=== PATIENT | female | born 1995 | race Caucasian/White ===

== ENCOUNTER → 2021-05-20 14:36 | Outpatient (BNVA) | payer BC, SELFPAY | PROVIDERS: Visit Provider Nurse Practitioner Women's Health | DX: N92.6 Irregular menstruation, unspecified (principal) | CPT/HCPCS: 81025 ==

== ENCOUNTER → 2021-06-04 11:00 | Outpatient (BNVA) | payer BC, SELFPAY | PROVIDERS: Visit Provider Obstetrics & Gynecology | DX: O36.80X0 Pregnancy with inconclusive fetal viability, not applicable or unspecified (principal) | CPT/HCPCS: 80053; 84702; 85025; 86850; 86900 ==

== ENCOUNTER 2021-06-06 14:42 | Outpatient (CLI) | payer BC, SELFPAY | END 2021-06-06 14:43 | disposition home or self-care (01) | LOC: LAB 14:49 | PROVIDERS: Visit Provider Nurse Practitioner Women's Health | DX: Z34.90 Encounter for supervision of normal pregnancy, unspecified, unspecified trimester (principal) | CPT/HCPCS: 36415; 84702 ==

== ENCOUNTER → 2022-02-19 13:39 | Outpatient (BNVA) | payer SELFPAY | PROVIDERS: Visit Provider Nurse Practitioner Women's Health | DX: N92.6 Irregular menstruation, unspecified (principal) | CPT/HCPCS: 81025 ==

== ENCOUNTER 2022-02-23 07:27 | Outpatient (CLI) | payer SELFPAY ==
--- NOTE | 2022-02-23 08:00 | US_ITS ---
WS: [id number] EARLY OBSTETRICAL ULTRASOUND (<14 WEEKS). HISTORY: Z34.90 - Encounter for supervision of normal COMPARISON: None available. Single intrauterine gestational sac is identified. Cardiac activity at 167 BPM. [place]-rump length brie sures 1.7 cm which corresponds to a gestation of 8w1d. Normal-appearing yolk sac and amnion demonstra madhu. No subchorionic hemorrhage. No free fluid. RIGHT ovary measures 2.7 x 2.3 x 5.1 cm. The RIGHT ovary contains a thick wall corpus luteum cyst brie suring 2.5 x 2.1 x 2.6 cm with a small amount of adjacent free fluid. Normal vascularity. LEFT ovary measures 2.5 x 1.7 x 3.1 cm. Cervix is closed and normal length measuring 4.0 cm. There is a very tiny amount of free fluid along the cervical canal which is probably of no significance. US/US OB transvaginal [id number] IMPRESSION: 1. Single intrauterine gestation of 8 weeks 1 day with an EDC of 10/04/2022. 2. Normal cardiac activity. 3. RIGHT ovarian corpus luteum of with a small amount of adjacent fl uid.
== END 2022-02-23 07:28 | disposition home or self-care (01) ==
PROVIDERS: Visit Provider Obstetrics & Gynecology
DX: Z34.91 Encounter for supervision of normal pregnancy, unspecified, first trimester (principal); Z3A.08 8 weeks gestation of pregnancy
CPT/HCPCS: 76817

== ENCOUNTER → 2022-03-12 09:20 | Outpatient (BNVA) | payer BC, SELFPAY | PROVIDERS: Visit Provider Obstetrics & Gynecology | DX: Z34.90 Encounter for supervision of normal pregnancy, unspecified, unspecified trimester (principal) | CPT/HCPCS: 80307; 84315; 87086 ==

== ENCOUNTER → 2022-03-27 11:06 | Outpatient (BNVA) | payer BC, MEDICAID, SELFPAY | PROVIDERS: Visit Provider Obstetrics & Gynecology | DX: Z34.90 Encounter for supervision of normal pregnancy, unspecified, unspecified trimester (principal) | CPT/HCPCS: 81000; 84443; 85025; 86592; 86762; 86803; 86850; 86900; 87340; 87491; 87591; 87661; 87806; 88175 ==

== ENCOUNTER → 2022-07-10 12:53 | Outpatient (BNVA) | payer BC, MEDICAID, SELFPAY | PROVIDERS: Visit Provider Obstetrics & Gynecology | DX: Z34.90 Encounter for supervision of normal pregnancy, unspecified, unspecified trimester (principal) | CPT/HCPCS: 81000; 82950; 85025 ==

== ENCOUNTER → 2022-08-06 10:20 | Outpatient (BNVA) | payer BC, MEDICAID, SELFPAY | PROVIDERS: Visit Provider Obstetrics & Gynecology | DX: Z34.90 Encounter for supervision of normal pregnancy, unspecified, unspecified trimester (principal) | CPT/HCPCS: 81000 ==

== ENCOUNTER → 2022-08-19 10:00 | Outpatient (BNVA) | payer BC, MEDICAID, SELFPAY | PROVIDERS: Visit Provider Obstetrics & Gynecology | DX: Z34.90 Encounter for supervision of normal pregnancy, unspecified, unspecified trimester (principal) | CPT/HCPCS: 81000 ==

== ENCOUNTER → 2022-09-03 12:50 | Outpatient (BNVA) | payer BC, MEDICAID, SELFPAY | PROVIDERS: Visit Provider Obstetrics & Gynecology | DX: Z34.90 Encounter for supervision of normal pregnancy, unspecified, unspecified trimester (principal) | CPT/HCPCS: 81000; 85025 ==

== ENCOUNTER → 2022-09-14 15:00 | Outpatient (BNVA) | payer BC, MEDICAID, SELFPAY | PROVIDERS: Visit Provider Obstetrics & Gynecology | DX: Z34.90 Encounter for supervision of normal pregnancy, unspecified, unspecified trimester (principal); Z67.91 Unspecified blood type, Rh negative | CPT/HCPCS: 81000; 86850; 87081; 87086 ==

== ENCOUNTER → 2022-09-21 13:30 | Outpatient (BNVA) | payer BC, MEDICAID, SELFPAY | PROVIDERS: Visit Provider Obstetrics & Gynecology | DX: Z34.90 Encounter for supervision of normal pregnancy, unspecified, unspecified trimester (principal) | CPT/HCPCS: 81000 ==

== ENCOUNTER → 2022-09-28 08:21 | Outpatient (BNVA) | payer BC, MEDICAID, SELFPAY | PROVIDERS: Visit Provider Obstetrics & Gynecology | DX: Z34.90 Encounter for supervision of normal pregnancy, unspecified, unspecified trimester (principal) | CPT/HCPCS: 81000 ==

== ENCOUNTER → 2022-10-05 08:43 | Outpatient (BNVA) | payer BC, MEDICAID, SELFPAY | PROVIDERS: Visit Provider Obstetrics & Gynecology | DX: Z34.90 Encounter for supervision of normal pregnancy, unspecified, unspecified trimester (principal) | CPT/HCPCS: 81000 ==

== ENCOUNTER 2022-10-10 03:59 | Inpatient (IN) | payer BC, MEDICAID, SELFPAY ==
[2022-10-09] VITALS (28 sets, daily range): BP systolic 116–143; BP diastolic 72–97; PULSE 70–115; RESP 15–18; TEMP 36.3–36.8; BMI 36.6
[2022-10-09 10:40] LABS: Actim Prom Positive
[2022-10-09 11:29] LABS: Basophils % 0.4 %; Eosinophils % 0.4 %; Hematocrit 38.4 % (37.0-47.0); Hemoglobin 12.7 g/dL (11.5-15.3); Lymphocytes # 2.2 10^3/uL (0.8-4.8); Mean Corpuscular HGB Conc 33.1 g/dL (30.0-36.0); Mean Corpuscular Hemoglobin 26.8 pg (28.0-34.0); Mean Platelet Volume 9.5 fL (7.4-10.4); Monocytes # 0.5 10^3/uL (0.2-0.9); Neutrophils # 7.66 10^3/uL (1.8-7.7); Neutrophils % 72.6 %; Nucleated Red Blood Cells % 0 %; Platelet Count 274 10^3/cmm (130-400); Red Blood Count 4.74 10^6/uL (4.1-5.3); Red Cell Distribution Width 13.8 % (12.1-15.1); White Blood Count 10.6 10^3/uL (4.0-10.0)
[2022-10-09] MEDS: miSOPROStol 100 mcg tablet 25 MCG VAGINAL ×3 (11:47→19:52)
[2022-10-09] MEDS: dextrose 5%-lactated ringers 1,000 ML 125 ML IV (11:48)
[2022-10-09] MEDS: ampicillin 2,000 MG in sodium chloride 0.9% (plus) 50 ML 100 MG IV (11:48)
[2022-10-09] MEDS: ampicillin 1,000 MG in sodium chloride 0.9% (plus) 50 ML 100 MG IV ×3 (15:47→23:48)
[2022-10-09] MEDS: fentaNYL 50 mcg/mL INJ 2mL IVP ×2 (22:04→23:21)
[2022-10-10] VITALS (89 sets, daily range): BP systolic 91–162; BP diastolic 53–97; PULSE 60–116; RESP 16–20; TEMP 35.8–37.4; O2SAT 97–98
[2022-10-10] MEDS: oxytocin 30 UNIT/500 ML BAG IV (00:27)
[2022-10-10] MEDS: fentaNYL 50 mcg/mL INJ 2mL IVP ×5 (00:35→04:59)
[2022-10-10] MEDS: ampicillin 1,000 MG in sodium chloride 0.9% (plus) 50 ML 100 MG IV ×4 (03:48→16:00)
[2022-10-10] MEDS: lactated ringers 1,000 ML 999 ML IV ×4 (03:55→20:50)
--- NOTE | 2022-10-10 06:19 | ANES.PREANE2 ---
Pre-Anesthetic Assessment Height/Weight: Height 1.6 m Weight 93.894 kg Temp Pulse Resp BP Pulse Ox O2 Del Method 96.4 F L 61 16 116/74 97 10/10/22 06:01 10/10/22 06:14 10/10/22 04:59 10/10/22 06:14 10/10/22 05:13 10/09/22 11:28 Epidural Familial anesthetic complications: None Was Beta Bereket taken within 24 hours: N/A Was Clonidine taken within 24 hours: N/A Social No alcohol and No tobacco Exam alert, oriented x 3, clear to auscultation bilaterally and regular rate & rhythm Airway Mallampati: Class III Dentition: full Anesthetic Plan ASA status: 2 Anesthesia: Regional (specify below) Risk of > 500 ml blood loss (7ml/kg in children): Yes, adequate IV access and fluids planned Medications/Allergies Home Medications Medication Instructions Recorded Confirmed Last Taken Type prenat.vits,adarsh,lte-pzum-gzcmu 1 tab PO DAILY 02/19/22 10/05/22 10/09/22 08:00 History calcium carbonate 200 mg calcium 200 mg PO BID 07/10/22 10/05/22 10/08/22 20:00 History (500 mg) chewable tablet (Tums) Allergies Allergy/AdvReac Type Severity Reaction Status Date / Time No Known Allergies Allergy Verified 10/05/22 08:48 Current Medications Generic Name Dose Route Start Last Admin Trade Name Freq PRN Reason Stop Dose Admin Fentanyl 25 - 100 mcg 10/09/22 21:38 10/10/22 04:59 Fentanyl 50 Mcg/Ml Inj 2ml IVP 75 mcg Q1H PRN Administration SEVERE PAIN Dextrose/Lactated Ringer's 1,000 mls @ 125 mls/hr 10/09/22 11:15 10/09/22 11:48 Dextrose 5%-Lactated Ringers IV 125 mls/hr .Q8H PARISA Administration Ampicillin Sodium 1,000 mg/ 50 mls @ 100 mls/hr 10/09/22 15:45 10/10/22 03:48 Sodium Chloride IV 100 mls/hr Q4H PARISA Administration Protocol Oxytocin 30 unit in 500 mls @ 1 mls/hr 10/09/22 23:45 10/10/22 01:01 Pitocin IV 2 milliunit/min .Q24H PARISA 2 mls/hr Titration Protocol 1 MILLIUNIT/MIN Lactated Ringer's 1,000 mls @ 999 mls/hr 10/10/22 03:53 10/10/22 03:55 Lactated Ringers IV 999 mls/hr .Q1H1M PRN Administration See label comments PFSH Anesthesia Medical History No pertinent past medical history neghx: htn,dm,thyroid,dvt/pe PCP: None Surgical History H/O oral surgery (~2019) removal of abscess Family History Grandfather Diabetes Paternal Denies family history of Colon cancer Ovarian cancer Heart disease Hypercholesteremia Breast cancer Hypertension Uterine cancer Thyroid disease Stroke Social History Smoking and tobacco status: never smoked Female Reproductive History : 2 Data Anesthesia 10/09/22 11:00 Short CBC 10/09/22 Range/Units 11:00 WBC 10.6 H (4.0-10.0) 10^3/uL Hgb 12.7 (11.5-15.3) g/dL Hct 38.4 (37.0-47.0) % MCV 81.0 (81-99) fl Plt Count 274 (130-400) 10^3/cmm Neut % (Auto) 72.6 % Neut # (Auto) 7.66 (1.8-7.7) 10^3/uL Cardiac Studies: No Data to Display
--- NOTE | 2022-10-10 06:20 | ANES.PROC ---
Anesthesia Procedures Procedure/Date: 10/10/22 Epidural: Time Out Performed: Yes Consents Signed: Procedure Consent Consent: requested by attending/covering physician, from patient, from other, risks and benefits reviewed and patient agrees to proceed Lumbar Level: L3-L4 Epidural position: sitting Epidural procedure: sterile prep of area, 1% lidocaine to numb the area, 18 g needle, negative for paresthesia passed, neg for paresthesia, test dose given, 1.5% xylocaine 1:200k epi (5 cc), 0.2% Ropivacaine bolus ml (5), placed PCEA, no systemic response, sterile dressing applied, L.U.D. no apparent complications and 0.2% Ropiavacaine @ mls/hr (13) Additional Comments: BHAVIN at 4.5 cm, threaded to 10.5 cm
[2022-10-10] MEDS: dextrose 5%-lactated ringers 1,000 ML 125 ML IV (13:57)
--- NOTE | 2022-10-10 20:39 | PM.PN ---
Subjective Subjective: Ms. Ford is a 26 year old established patient with LMP of 12/12/21, and an RO of 10/12/21 based on 8 week sonogram placing her at 39+5 admitted to labor and delivery with premature rupture membranes. Vitals/I&O/Wt Last Vital Signs Temp 98.8 F 10/10/22 17:57 Pulse 93 10/10/22 20:33 Resp 20 H 10/10/22 16:55 BP 130/60 10/10/22 20:33 Pulse Ox 97 10/10/22 05:13 O2 Del Method 10/09/22 11:28 10/10/22 10/10/22 10/10/22 06:59 14:59 22:59 Intake Total 100.567 / 0421.017 5745.717 / 2219.717 151.00 / 2370.717 Balance 100.567 / 1219.531 1790.717 / 2219.717 151.00 / 2370.717 Weight last 48 hrs Weight 93.894 kg Weight 93.894 kg Physical Exam Narrative: GA: Alert and oriented ?3. Lungs: Clear to auscultation bilaterally. Heart: Regular rhythm and rate. Abdomen: Gravid, full the height equals dates, nontender. 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 Extremities: no edema, no cyanosis, no calves pain. heart tracing: Basal rate: 130's bpm, Variability: moderate, Accelerations: present, Decelerations: Occasional variable early, Contraction: q3-5m. Urinary Catheter Management: Daniel: Cath Placed During This Visit: yes, but has since been removed by the nurse Reason for Continuing Indwelling Catheter: Decision to DC Catheter Urinary Catheter Date of Insertion: 10/10/22 Urinary Catheter Time of Insertion: 05:45 Date Urinary Catheter Removed: 10/10/22 Time Urinary Catheter Discontinued: 16:53 Data 10/09/22 11:00 A&P Assessment and plan (1) Term : Ms. Ford is a 26 year old established patient with LMP of 12/12/21, and an RO of 10/12/21 based on 8 week sonogram placing her at 39+5 admitted to labor and delivery with premature rupture membranes. Misoprostol was given for cervical ripening. Then she was started on oxytocin for augmentation. She had a slow progression of labor had been fully dilated for 3-1/2 hours without significant descent. heart tracing category 2. scalp stimulation good. Patient was counseled regarding failure to descend and recommendation for primary low transverse delivery. Her and her agreed. (2) Rh negative state in antepartum period: (3) Premature rupture of membranes: Attestations Medical Necessity Statement*: In my professional opinion per admitting diagnosis Coding Level of Care Code Acute Code for Chg Fwd Diagnoses Term Z34.90 Rh negative state in antepartum period O26.899; Z67.91 Premature rupture of membranes O42.90
[2022-10-10] MEDS: famotidine 20 mg/2 mL INJ IVP (21:02)
[2022-10-10] MEDS: citric acid-sodium citrate 30 mL UDC PO (21:02)
[2022-10-10] MEDS: metoclopramide 5 mg/mL SDV 2 mL 10 MG IVP (21:02)
[2022-10-10] MEDS: ceFAZolin 2,000 MG in sodium chloride 0.9% (plus) 50 ML 100 MG IV (21:03)
--- NOTE | 2022-10-10 22:50 | PM.OP ---
Operative Report Date of procedure: October 10, 2022 Pre-op diagnosis: Term Premature rupture of membrane Failure to descend. Post-op diagnosis: Same as above Procedure done: Primary low transverse delivery Surgeon: Nic Puentes MD Estimated blood loss (mL): 1,000 IV fluids (mL): 1,100 Urine output (mL): 300 Complications: None Brief History: Mrs. Blevins 26-year-old female G1, P0 with an estimated gestational age at 39 weeks, in active labor with arrest of descent. heart tracing category 2. Procedure: After assuring informed consent, the patient was taken to the operating room and anesthesia was initiated. She was placed in the dorsal supine position with a left lateral tilt. The abdomen was prepped and draped in the usual sterile manner. A time-out procedure was performed. A Pfannenstiel skin incision was made with the scalpel and carried through to the underlying layer of fascia with the Bovie. The fascia was nicked in the midline and the incision extended laterally with the Smith scissors. The superior aspect of the fascial incision was then grasped with Petra clamps and elevated and the underlying rectus muscle dissected off bluntly and sharp with smith scissors. Attention was then turned to the inferior aspect of the incision which, in similar fashion, was grasped and tented up with Petra clamps and the rectus muscle dissected bluntly. The rectus muscles were then in the midline and the peritoneum identified, tented up and entered sharply with Metzenbaum scissors. The peritoneal incision was then extended superiorly and inferiorly with good visualization of the bladder. The Mert O retractor was then inserted and the vesicouterine peritoneum identified, grasped with pickups and entered sharply with Metzenbaum scissors. This incision was then extended laterally and the bladder flap created digitally. The uterus incised in a low transverse fashion with the scalpel. The uterine incision was then extended with the bandage scissors. The was then delivered in the cephalic presentation atraumatically. The nose and the mouth were suctioned with bulb and the cord clamped and cut. The cord was normal and had three vessels. Amniotic fluid was clear. The placenta was then removed manually and the uterus exteriorized and cleared of all clots and debris. The uterine incision was repaired with 0 Vicryl in a running-locked fashion. A second layer of the same suture was used to obtain excellent hemostasis. The gutters were cleared of all clots. The uterus was then returned to the abdomen. The rectus muscles were approximated with 3-0 chromic gut. The ON-Q pain management system placed. The fascia was reapproximated with 0 Vicryl in an interrupted running fashion. The skin was closed with Insorb?s subcuticular absorbable jeremiah. The incision was infiltrated with Exparel for pain management. The patient tolerated the procedure well. The sponge, lap and needle counts were correct times three.
[2022-10-11] VITALS (86 sets, daily range): BP systolic 109–157; BP diastolic 58–92; PULSE 64–113; RESP 18; TEMP 36.2–36.6; O2SAT 91–98
[2022-10-11] MEDS: ampicillin 1,000 MG in sodium chloride 0.9% (plus) 50 ML 100 MG IV ×4 (01:22→16:12)
[2022-10-11] MEDS: ketorolac 30 mg/mL INJ IVP ×2 (06:07→11:34)
[2022-10-11] MEDS: ferrous sulfate EC 325 mg Tablet PO ×2 (08:17→17:54)
[2022-10-11] MEDS: prenatal vitamin Capsule 1 CAP PO (08:17)
[2022-10-11] MEDS: dextrose 5%-lactated ringers 1,000 ML 125 ML IV (08:18)
[2022-10-11] MEDS: docusate sodium 100 mg Capsule PO ×2 (08:18→17:54)
--- NOTE | 2022-10-11 10:31 | PM.PN ---
Subjective Subjective: Mrs. Hernandez is an 26-year-old female G1, P1 is status post primary low transverse delivery postoperative day 1. Pain well under control. Vitals/I&O/Wt Last Vital Signs Temp 98.2 F 10/12/22 15:42 Pulse 93 10/12/22 15:43 Resp 15 10/12/22 15:45 BP 134/85 10/12/22 15:43 Pulse Ox 97 10/11/22 06:18 O2 Del Method 10/10/22 23:28 Physical Exam Narrative: GA; alert and oriented x 3 HEENT: normal Breasts: engorged Nipples - skin intact Lungs; clear to auscultation Heart: regular rhythm, no murmurs. Abd: Appropriately tender. BS+. Uterine fundus below umbilicus. No Fundal Tenderness. minimal tenderness, incision clean and dry, no redness, pain or edema. Perineum: normal lochia. Extremities: no edema, no cyanosis, no tenderness. Urinary Catheter Management: Daniel: Cath Placed During This Visit: yes, but has since been removed by the nurse Reason for Continuing Indwelling Catheter: Decision to DC Catheter Urinary Catheter Date of Insertion: 10/10/22 Urinary Catheter Time of Insertion: 20:55 Date Urinary Catheter Removed: 10/11/22 Time Urinary Catheter Discontinued: 10:31 Data 10/11/22 10:35 A&P Assessment and plan (1) Status post delivery: This patient is an 26-year-old female G1, P1 is status post primary low-transverse delivery postoperative day 1. Due to failure to descend/CPD. She is afebrile hemodynamically stable. Tolerating diet well. She is afebrile hemodynamically stable. (2) Premature rupture of membranes: (3) Term delivered: (4) Rh negative state in antepartum period: Infant Rh- Plan Continue postop observation Attestations Medical Necessity Statement*: My professional opinion per admitting diagnosis Coding Level of Care Code Acute Code for Chg Fwd Diagnoses Status post delivery Z98.891 Premature rupture of membranes O42.90 Term delivered O80 Rh negative state in antepartum period O26.899; Z67.91
[2022-10-11 12:38] LABS: Hemoglobin 8.8 g/dL (11.5-15.3); Mean Corpuscular HGB Conc 32.6 g/dL (30.0-36.0); Mean Corpuscular Hemoglobin 26.8 pg (28.0-34.0); Mean Corpuscular Volume 82.3 fl (81-99); Platelet Count 241 10^3/cmm (130-400); Red Blood Count 3.28 10^6/uL (4.1-5.3); Red Cell Distribution Width 14.2 % (12.1-15.1)
[2022-10-11] MEDS: ibuprofen 800 mg tablet PO (21:52)
[2022-10-12] VITALS (9 sets, daily range): BP systolic 109–134; BP diastolic 58–85; PULSE 76–93; RESP 15–16; TEMP 36.4–36.8
[2022-10-12] MEDS: HYDROcodone-acetaminophen 5-325 mg Tablet PO (07:09)
--- NOTE | 2022-10-12 08:08 | ANE.PACU2 ---
Inpatient post-anesthesia follow up: Airway intact: Yes Vital signs: Temperature 97.5 F Pulse Rate 79 Respiratory Rate 18 Blood Pressure 109/58 Pulse Oximetry 97 Oxygen Delivery Me thod Room Air Oxygen Flow Rate Fraction of Inspir ed Oxygen Hydration adequate: Yes Nausea and vomiting: No Pain level: 2 Mental status: Baseline
[2022-10-12] MEDS: docusate sodium 100 mg Capsule PO (08:12)
[2022-10-12] MEDS: ferrous sulfate EC 325 mg Tablet PO (08:13)
[2022-10-12] MEDS: ibuprofen 800 mg tablet PO ×2 (08:13→15:45)
[2022-10-12] MEDS: prenatal vitamin Capsule 1 CAP PO (08:14)
--- NOTE | 2022-10-12 17:36 | PM.OBGYDC ---
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 Gutiérrez Diagnoses at Discharge Discharge Diagnosis (1) Status post delivery: Status: Acute (2) Premature rupture of membranes: Status: Acute (3) Term delivered: Status: Acute (4) Rh negative state in antepartum period: Status: Acute Reason for Visit Reason for Visit: loss of fluid and vaginal bleeding Hospital Course Hospital Course Mrs. Blevins 26-year-old female G1, P0 A stational age at 39 weeks. Admitted to labor and delivery with premature rupture of membranes. Labor was induced with misoprostol and then followed with oxytocin. She had a slow progress of labor to full dilation but arrest in descent after 4 hours of fully dilated. A primary low transverse delivery was performed without complication. She is afebrile and hemodynamically stable postoperative day 2. Tolerating diet well. Ambulating without difficulty. Pain well under control.. Information Peripartum Data: Infant Delivery Method: Physical Exam Narrative: GA; alert and oriented x 3 HEENT: normal Breasts: engorged Nipples - skin intact Lungs; clear to auscultation Heart: regular rhythm, no murmurs. Abd: Appropriately tender. BS+. Uterine fundus below umbilicus. No Fundal Tenderness. minimal tenderness, incision clean and dry, no redness, pain or edema. Perineum: normal lochia. Extremities: no edema, no cyanosis, no tenderness. Urinary Catheter Management: Daniel: Cath Placed During This Visit: yes, but has since been removed by the nurse Reason for Continuing Indwelling Catheter: Decision to DC Catheter Urinary Catheter Date of Insertion: 10/10/22 Urinary Catheter Time of Insertion: 20:55 Date Urinary Catheter Removed: 10/11/22 Time Urinary Catheter Discontinued: 10:31 History History History 2 Term 0 0 Miscarriages/Ectopic 1 Living Children 0 Discharge Data Studies Completed and Pending Laboratory Results WBC 16.0 10^3/uL (4.0-10.0) H 10/11/22 10:35 RBC 3.28 10^6/uL (4.1-5.3) L 10/11/22 10:35 Hgb 8.8 g/dL (11.5-15.3) L 10/11/22 10:35 Hct 27.0 % (37.0-47.0) L 10/11/22 10:35 MCV 82.3 fl (81-99) 10/11/22 10:35 MCH 26.8 pg (28.0-34.0) L 10/11/22 10:35 MCHC 32.6 g/dL (30.0-36.0) 10/11/22 10:35 RDW 14.2 % (12.1-15.1) 10/11/22 10:35 Plt Count 241 10^3/cmm (130-400) 10/11/22 10:35 MPV 10.0 fL (7.4-10.4) 10/11/22 10:35 Neut % (Auto) 72.6 % 10/09/22 11:00 Lymph % (Auto) 21.0 % 10/09/22 11:00 [place] % (Auto) 5.0 % 10/09/22 11:00 Eos % (Auto) 0.4 % 10/09/22 11:00 Baso % (Auto) 0.4 % 10/09/22 11:00 Neut # (Auto) 7.66 10^3/uL (1.8-7.7) 10/09/22 11:00 Lymph # (Auto) 2.2 10^3/uL (0.8-4.8) 10/09/22 11:00 [place] # (Auto) 0.5 10^3/uL (0.2-0.9) 10/09/22 11:00 Eos # (Auto) 0.0 10^3/uL (0.0-0.8) 10/09/22 11:00 Baso # (Auto) 0.0 10^3/uL (0.0-0.1) 10/09/22 11:00 Nucleated RBC % (auto) 0 % 10/09/22 11:00 Nucleated RBCs # 0.0 /100WBC 10/09/22 11:00 Insulin-like GF I Positive 10/09/22 10:34 Vitals Last Vital Signs Temp 98.2 F 10/12/22 15:42 Pulse 93 10/12/22 15:43 Resp 15 10/12/22 15:45 BP 134/85 10/12/22 15:43 Pulse Ox 97 10/11/22 06:18 O2 Del Method 10/10/22 23:28 Discharge Plan Discharge Patient Disposition: Home Condition: Stable Prescriptions: New hydrocodone-acetaminophen 5-325 mg tablet 1 tab PO Q4H PRN (Reason: pain) Qty: 10 0RF acetaminophen 325 mg capsule 325 mg PO Q4H PRN (Reason: fever or pain) Qty: 60 0RF docusate sodium [Colace] 100 mg capsule 100 mg PO BID Qty: 60 0RF ferrous sulfate [Iron (ferrous sulfate)] 325 mg (65 mg iron) tablet 325 mg PO BID Qty: 60 0RF ibuprofen 800 mg tablet 800 mg PO TID PRN (Reason: pain) Qty: 60 0RF Continued prenat.vits,adarsh,jzp-klvc-gclni Tablet 1 tab PO DAILY calcium carbonate [Tums] 200 mg calcium (500 mg) tablet,chewable 200 mg PO BID Discharge Orders: Discharge Order (Routine); Ordered 10/12/22 Ordered By: Nic Puentes Referrals: Nic Puentes MD [Physician] - 2 weeks Discharge Diet: Usual diet Discharge Activity: Limit activity as instructed Patient Instructions: Opioid Safety, (GEN), Caring for Your Baby (GEN), Choosing Between Vaginal After () or Repeat... (GEN), Your 's Appearance (GEN), TTN (Transient Tachypnea of [place]) (GEN) Activity Restrictions/Additional Instructions: 1. Please call [facility] on next working day to make your post-operative appointment in 2 weeks. 2. Please stay home until you come back to the clinic on first post-operative check up. 3. Please follow instructions on your medications CAREFULLY. 4. If you have abdominal incision, do not cover it unless dressing is necessary because of drainage. OK to shower, but avoid bath. Leave steri-strips until they fall off. If they are still on one week after surgery, you may remove them. 5. If you had vaginal surgery or vaginal repair, Dr. Puentes may instruct you to take SITZ bath. 6. Yellow, blood tinged odorous vaginal discharge is usually normal after hysterectomy or vaginal surgeries. 7. No sexual intercourse, tampons, or douches until you are completely released from the post-operative care. 8. Avoid constipation by eating right and maybe using some Metamucil or Milk of Magnesia. 9. All prescription refills are given during the working hours. Please do no wait till it runs out. Call the clinic at [phone] before your medication runs out. The clinic will get in touch with your doctor to prescribe medications if necessary. 10. Please remain within 40 mile radius from our hospital because emergencies do happen now and then during the post-operative period. 11. If you have stairs at home, take one step at a time slowly and minimize the number of trips. It helps to stay in one floor for the next few days. No lifting except what you can lift by one hand until you are released from the post-operative care. 12. Driving is discouraged until you are well healed. It may be 3-4 weeks before you feel strong enough to drive. You should be able to turn and look through the rear window without pain and you should be able to push the brake pedal very hard without pain before you drive. No fast rules, but SAFETY should be your primary concern. DO NOT drive if you are on sedating medications such as narcotics. 13. Call the clinic (during working hours) to make urgent appointment or go to the Emergency room, if any of the following occurs: i. Vaginal bleeding becomes heavy, more than a period. ii. Incision becomes red and sore, or drains pus. iii. Your temperature is over 100.4 or you have chill. iv. IV site becomes red and swollen (a little ``knot?? is usually OK) v. Persistent nausea and vomiting vi. Persistent constipation or diarrhea vii. Rash or allergic reaction to medications. Discharge Attestations [employer] Time Spent in Discharge Care*: greater than 30 min Coding Level of Care Code Acute Code for Chg Fwd Diagnoses Status post delivery Z98.891 Premature rupture of membranes O42.90 Term delivered O80 Rh negative state in antepartum period O26.899; Z67.91
== END 2022-10-12 19:33 | disposition home or self-care (01) | DRG 787 ==
LOC: OPOB 03:59 → OBGYN 03:59
PROVIDERS: Absent Provider Obstetrics & Gynecology; Admitting Provider Obstetrics & Gynecology; Visit Provider Obstetrics & Gynecology
PROC: (CPT 59514; principal; 2022-10-11 21:10)
DX: O42.92 Full-term premature rupture of membranes, unspecified as to length of time between rupture and onset of labor (principal); O36.0930 Maternal care for other rhesus isoimmunization, third trimester, not applicable or unspecified; O32.4XX0 Maternal care for high head at term, not applicable or unspecified; Z3A.39 39 weeks gestation of pregnancy; Z37.0 Single live birth
CPT/HCPCS: 36415; 51702; 59025; 59409; 83986; 84112; 85025; 85027; 96374; 96376; 99211; C9290; J0290; J0690; J1885; J2250; J2274; J2405; J2590; J2765; J2795; J3010; J3490; J7030; J7120; J7121